=== PATIENT | male | born 1985 | race Hispanic/Latino ===

== ENCOUNTER 2018-12-26 13:16 | Emergency (ER) | payer MEDICAID ==
[2018-12-26] MEDS ORDERED: Bacitracin 1 PK ONE (14:38)
== END 2018-12-26 14:10 | disposition home or self-care (01) ==
LOC: SCSER 13:16
DX: S01.81XD Laceration without foreign body of other part of head, subsequent encounter (principal); S51.811D Laceration without foreign body of right forearm, subsequent encounter; V89.2XXD Person injured in unspecified motor-vehicle accident, traffic, subsequent encounter